=== PATIENT | male | born 1990 | race African-American/Black ===

== ENCOUNTER 2019-05-08 15:09 | Emergency (ER) | payer MEDICARE, OTHER ==
[~2019-05-08] VITALS: Ht 180.3 cm; Wt 74.8 kg
--- NOTE | 2019-05-08 15:30 | NUR ---
PATIENT WAS MSE BY DR LOPES IN ROOM 02A. PATRICIA A & Alber X4.
--- NOTE | 2019-05-08 15:48 | NUR ---
Patient discharged to home in stable conditon. Written and verbal after care instructions given. Patient verbalizes understanding of instructions.
[2019-05-08 15:51] VITALS: BP 111/75
== END 2019-05-08 15:51 | disposition home or self-care (01) ==
LOC: ER 15:12
DX: H10.89 Other conjunctivitis (principal); B96.89 Other specified bacterial agents as the cause of diseases classified elsewhere
CPT/HCPCS: A4663

== ENCOUNTER 2020-01-08 11:25 | Emergency (ER) | payer MEDICARE, OTHER ==
[~2020-01-08] VITALS: Ht 175.3 cm; Wt 81.6 kg
--- NOTE | 2020-01-08 11:42 | NUR ---
PT IS IN ROOM #2B UNDER DIRECT SUPERVISION OF AMBIKA WHITMAN. DR SU EVALUATED THE PT.
[2020-01-08 11:56] LABS: BASOPHILS # (AUTO) 0.1 K/uL (0.0-8.0); BASOPHILS % (AUTO) 0.6 % (0.0-2.0); EOSINOPHILS # (AUTO) 0.3 K/uL (0.0-0.7); HEMOGLOBIN 16.1 g/dL (12.5-16.3); LYMPHOCYTES # (AUTO) 2.2 K/uL (20.0-40.0); LYMPHOCYTES % (AUTO) 24.5 % (20.5-51.5); MEAN CORPUSCULAR HEMOGLOBIN 29.6 uug (23.8-33.4); MEAN CORPUSCULAR HGB CONC 35 g/dL (32.5-36.3); MEAN CORPUSCULAR VOLUME 84.4 fL (73.0-96.2); MONOCYTES # (AUTO) 0.8 K/uL (2.0-10.0); MONOCYTES % (AUTO) 8.7 % (0.0-11.0); NEUTROPHILS # (AUTO) 5.7 K/uL (1.8-8.9); NEUTROPHILS % (AUTO) 63.2 % (38.5-71.5); PLATELET COUNT (AUTO) 273 K/uL (152-348); RED BLOOD CELL COUNT(AUTO) 5.45 MIL/uL (4.06-5.63); WHITE BLOOD COUNT (AUTO) 9.1 K/uL (3.6-10.2)
[2020-01-08 12:03] LABS: CARBON DIOXIDE 28 mmol/L (21-32); CHLORIDE 101 mmol/L (98-107); CREATININE 0.9 mg/dL (0.6-1.3); GLUCOSE 97 mg/dL (74-106); POTASSIUM 3.5 mmol/L (3.5-5.1); UREA NITROGEN, BLOOD 6 mg/dL (7-18)
[2020-01-08 12:09] LABS: ALANINE AMINOTRANSFERASE 24 U/L (16-63); ALKALINE PHOSPHATASE 114 U/L (50-136); ASPARTATE AMINOTRANSFERASE 19 U/L (15-37); BILIRUBIN,DIRECT 0.1 mg/dL (0.0-0.2); BILIRUBIN,TOTAL 0.4 mg/dL (0.2-1.0); TOTAL PROTEIN, SERUM 8.5 g/dL (6.4-8.2)
[2020-01-08 12:10] LABS: ETHANOL < 3 MG/DL (0-0)
[2020-01-08 12:12] LABS: *AMPHETAMINE, URINE NEGATIVE (NEGATIVE); *BARBITURATE, URINE NEGATIVE (NEGATIVE); *CANNABINOID, URINE POSITIVE (NEGATIVE); *COCCAINE, URINE NEGATIVE (NEGATIVE); *OPIATE, URINE NEGATIVE (NEGATIVE); *PHENCYCLIDINE SCREEN,URINE NEGATIVE (NEGATIVE)
[2020-01-08] MEDS ORDERED: OLANZAPINE 5 MG TABLET PO ONE (13:00)
[2020-01-08] MEDS ORDERED: OLANZAPINE 5 MG TABLET ONE (13:29)
--- NOTE | 2020-01-08 14:02 | NUR ---
CRISIS IMPORTER OR EXPORTER INGA WAS CALLED . CANDACE IS 30 MINUTES. PT IS RESTING IN BED COMFORTABLY. NO S/S OF DISTRESS AT THIS TIME. CONTINUE TO MONITOR THE PT.
--- NOTE | 2020-01-08 14:30 | NUR ---
Lyric faria in EDM - 01/08/20 at 1535 by JOE CRISIS SLUNK SKIN CURER IGNA TALKED TO THE PT. PT IS GOING TO BE TRANSFERED TO [facility] [address] [facility]IA BLS AMBULANCE.
--- NOTE | 2020-01-08 14:48 | NUR ---
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 SW discussed patient's needs with Dr. Watters and Edgar. SW then met with the patient, who was in his assigned ED bed. Patient is a 29 year old -[place] male. Patient was awake, alert, oriented x 4, receptive to meeting with this SW. Patient reports being homeless for the last 4 years. Patient states that he does not have any family or friends to contact for emergencies. Patient provided this SW with his cell phone # [phone]. Patient reports diagnosis of Schizophrenia, and being on Risperdal and Xanax in the past, however states he has not been taking his medication. Patient did not provide a reason why he hasn't been taking his medications. Patient denied use of alcohol or drugs. Patient reports hx of auditory and visual hallucinations, but told this SW that he was not having any hallucinations today. However, per patient's medical records and per physician's report, patient told the physician that patient was having auditory hallucinations of voices telling him to run into traffic, but that patient reported not feeling suicidal or homicidal. Patient acknowledged that he feels the need for psychiatric treatment. Voluntary admission to inpatient psychiatric unit discussed, and patient expressed wanting to go to [facility], where he has received inpatient psychiatric care in the past. Patient's affect was flat, behavior was appropriate. Patient was cooperative and engaged in dialogue with this SW. Patient's appearance was fair, and hygiene was poor. Patient presented with a foul body odor. Speech was clear. Thought content was appropriate. Homeless community resources were discussed with the patient, and patient expressed agreement with receiving these resources. SW provided patient with the homeless resource packet, which includes the following resources: a list of year round shelters [facility] [address], ; [facility] [address] [facility], ; and [facility] [address] [facility], [phone], along with resources for places to go for food, showers, substance abuse treatment, mental health services, community medical clinics, and pharmacies. These include the following: the [facility] homeless directory which provides a list of places that individuals can go to throughout the week for hot meals, sack lunches, food pantries, and showers; a list of mental health clinics: [facility] [address] [place] [address], ; [facility] [address] [place] [address], ; [facility] [address] [place] [address], ; a list of medical clinics: [facility] [address] [facility] [address], [place]. [place], ; [facility] [address] [facility] [place] [address]; [facility] [address] [place] [address], ; and a list of substance abuse programs: [facility] Substance Abuse Self-helpline ; [facility] ; [facility] ; [facility] ; [facility] ; [facility] [phone]; [facility] [phone]; locations of pharmacies. ORLANDO completed the Homeless Patient Wavier Form, and patient signed the waiver form. ORLANDO filed the signed form in patient's ED chart. ORLANDO to submit referral to [facility] for inpatient psychiatric treatment. ORLANDO informed Dr. Watters and AMBIKA Hernández that this SW has provided patient with the homeless resource packet, and that this SW will be referring patient to [facility] for psychiatric treatment. Dr. Watters and ABMIKA Hernández were in agreement with the plan. ORLANDO to provide updates on the referral process to AMBIKA Hernández.
--- NOTE | 2020-01-08 15:05 | NUR ---
2:40pm: This SW faxed patient's face sheet, and medical records to Billy at [facility] (tel # [phone]; fax # [phone]).
--- NOTE | 2020-01-08 15:35 | NUR ---
AGUEDA XIONG EVALUATED THE PT. PT IS GOING TO BE TRANSFERED TO [facility] [address]. CONTINUE TO MONITOR THE PT.
[2020-01-08] MEDS ORDERED: IV NORMAL SALINE 1000 ML BAG IV ONE (15:45)
--- NOTE | 2020-01-08 16:12 | NUR ---
4:08pm: ORLANDO received a call from Susana at [facility] ([facility]) intake department [phone]. Susana asked this SW for a physician's note stating patient is medically cleared for psychiatric admission. Susana stated that patient will is pending admission to [facility] ([address] [place] [address], ), awaiting medical clearance note from physician. ORLANDO informed Susana and ORLANDO will fax the note over to Susana as soon as possible. ORLANDO spoke with AMBIKA Hernández and Dr. Watters regarding physician's note for medical clearance. Dr. Watters to complete this note. SW to fax the note to [facility] when completed.
--- NOTE | 2020-01-08 16:31 | NUR ---
4:25pm: ORLANDO faxed physician's note, indicating "patient is medically cleared for psychiatric admission" to Susana at [facility], fax # [phone].
--- NOTE | 2020-01-08 16:42 | NUR ---
4:40pm: ORLANDO received a call from Susana at [facility] intake, who stated that [facility] [address] [place] [address], . Susana stated that patient's admitting physician will be Dr. Rosales, and that patient would be going to Unit [address], Room [facility]. Susana asked for the ED nurse to call [facility] and provide a [id number] report around 5pm, x 108. AMBIKA Hernández informed of above. also asked AMBIKA Hernández to make ambulance arrangements for patient's transfer to [facility], and Edgar expressed agreement for all above.
--- NOTE | 2020-01-08 17:52 | NUR ---
REPORT WAS GIVEN TO AMBIKA BUTLER FROM [facility] [address]. PT WAS TRANSFERED TO [facility] VIA BLS AMBULANCE. PT WENT TO UNIT #1 , ROOM 107D.
== END 2020-01-08 17:56 ==
LOC: ER 11:25
DX: F20.9 Schizophrenia, unspecified (principal); Z91.14 Patient's other noncompliance with medication regimen; Z20.828 Contact with and (suspected) exposure to other viral communicable diseases; Z59.0 Homelessness
CPT/HCPCS: 36415; 80307; 85025; A4663; G0480; J7030

== ENCOUNTER 2020-01-22 20:14 | Emergency (ER) | payer MEDICARE, OTHER ==
[~2020-01-22] VITALS: Ht 177.8 cm; Wt 78.0 kg
[2020-01-22] MEDS ORDERED: RISP2TAB5 PO (20:24)
--- NOTE | 2020-01-22 20:50 | NUR ---
Medically cleared by DR Norman.
[2020-01-22 20:51] LABS: BASOPHILS # (AUTO) 0.1 K/uL (0.0-8.0); BASOPHILS % (AUTO) 1.1 % (0.0-2.0); EOSINOPHILS # (AUTO) 0.4 K/uL (0.0-0.7); EOSINOPHILS % (AUTO) 6.4 % (0.0-7.0); HEMOGLOBIN 13.7 g/dL (12.5-16.3); LYMPHOCYTES # (AUTO) 2.3 K/uL (20.0-40.0); LYMPHOCYTES % (AUTO) 32.8 % (20.5-51.5); MEAN CORPUSCULAR HEMOGLOBIN 29.4 uug (23.8-33.4); MEAN CORPUSCULAR HGB CONC 34 g/dL (32.5-36.3); MEAN CORPUSCULAR VOLUME 85.5 fL (73.0-96.2); MONOCYTES # (AUTO) 0.6 K/uL (2.0-10.0); MONOCYTES % (AUTO) 8.4 % (0.0-11.0); NEUTROPHILS # (AUTO) 3.5 K/uL (1.8-8.9); NEUTROPHILS % (AUTO) 51.3 % (38.5-71.5); PLATELET COUNT (AUTO) 250 K/uL (152-348); RED BLOOD CELL COUNT(AUTO) 4.68 MIL/uL (4.06-5.63); WHITE BLOOD COUNT (AUTO) 6.9 K/uL (3.6-10.2)
[2020-01-22] MEDS ORDERED: risperiDONE 2 MG TABLET PO STA (20:54)
[2020-01-22 20:58] LABS: CARBON DIOXIDE 26 mmol/L (21-32); CHLORIDE 105 mmol/L (98-107); CREATININE 0.8 mg/dL (0.6-1.3); GLUCOSE 93 mg/dL (74-106); POTASSIUM 3.7 mmol/L (3.5-5.1); UREA NITROGEN, BLOOD 12 mg/dL (7-18)
[2020-01-22 21:04] LABS: ACETAMINOPHEN < 2.0 ug/mL (10-30); ALANINE AMINOTRANSFERASE 23 U/L (16-63); ALKALINE PHOSPHATASE 94 U/L (50-136); ASPARTATE AMINOTRANSFERASE 18 U/L (15-37); BILIRUBIN,DIRECT 0.1 mg/dL (0.0-0.2); BILIRUBIN,TOTAL 0.3 mg/dL (0.2-1.0); TOTAL PROTEIN, SERUM 7.2 g/dL (6.4-8.2)
[2020-01-22 21:08] LABS: ETHANOL < 3 MG/DL (0-0)
[2020-01-22 21:09] LABS: *AMPHETAMINE, URINE NEGATIVE (NEGATIVE); *BARBITURATE, URINE NEGATIVE (NEGATIVE); *CANNABINOID, URINE POSITIVE (NEGATIVE); *COCCAINE, URINE NEGATIVE (NEGATIVE); *OPIATE, URINE NEGATIVE (NEGATIVE); *PHENCYCLIDINE SCREEN,URINE NEGATIVE (NEGATIVE)
[2020-01-22] MEDS ORDERED: risperiDONE 1 MG TABLET ONE (21:12)
--- NOTE | 2020-01-22 21:30 | NUR ---
Provided dinner for patient.
--- NOTE | 2020-01-22 21:30 | NUR ---
Radha from [employer] called Jannethal of [facility] intake who is requesting labs and facesheet to be fax to .
--- NOTE | 2020-01-22 22:18 | NUR ---
MALORIE from [facility] intake called back. Unable to accept patient due to max capacity. Will call Michael [phone] as suggested by MALORIE.
--- NOTE | 2020-01-22 22:25 | NUR ---
Spoke to Gary restrepo from [facility]. Requesting to fax labs and facesheet to .
[2020-01-23 00:09] LABS: *BILIRUBIN,URIN NEGATIVE (NEGATIVE); *BLOOD, URINE NEGATIVE (NEGATIVE); *CLARITY,URINE CLEAR (CLEAR); *COLOR,URINE YELLOW (YELLOW); *KETONES,URINE NEGATIVE (NEGATIVE); *UROBILINOGEN,URINE 0.2 E.U./dl (NORMAL); LEUKOCYTE ESTERASE ,URINE NEGATIVE (NEGATIVE); NITRITE, URINE NEGATIVE (NEGATIVE); UGLUCOSE NEGATIVE (NEGATIVE)
--- NOTE | 2020-01-23 02:12 | NUR ---
CJ intake from [facility] called back with transfer infor. Patient will be going to [facility] Room 310B, accepting MD is Dr Martin. Call for report is .
--- NOTE | 2020-01-23 02:24 | NUR ---
Called [facility]. No units available at this time to transfer patient.
--- NOTE | 2020-01-23 02:25 | NUR ---
Called [facility] for transfer, unable to transfer without insurance authorization.
--- NOTE | 2020-01-23 02:27 | NUR ---
Called [facility] ambulance. No units available at this time.
--- NOTE | 2020-01-23 02:36 | NUR ---
Called [facility] [phone]. ETA is 0585.
--- NOTE | 2020-01-23 02:44 | NUR ---
Gave SBAR report to Franki santiago from [facility] .
--- NOTE | 2020-01-23 04:58 | NUR ---
Gave SBAR report to [facility] unit 8.
== END 2020-01-23 05:05 ==
LOC: ER 20:17
DX: F23 Brief psychotic disorder (principal); R45.851 Suicidal ideations; Z91.14 Patient's other noncompliance with medication regimen; F12.10 Cannabis abuse, uncomplicated; Z79.899 Other long term (current) drug therapy; Z20.828 Contact with and (suspected) exposure to other viral communicable diseases
CPT/HCPCS: 36415; 80048; 80076; 80307 ×2; 80329; 81001; 85025; 87426; 99285; G0480; A4663

== ENCOUNTER 2023-01-04 08:36 | Emergency (ER) | payer MEDICARE, OTHER ==
[~2023-01-04] VITALS: Ht 175.3 cm; Wt 106.6 kg
[~2023-01-04 08:36] MED LIST: ARIP5TAB10 PO; DIVA250T4 PO
[2023-01-04] MEDS ORDERED: OLANZAPINE 10 MG VIAL IM ONE ×2 (09:15→09:40)
[2023-01-04 09:44] LABS: BASOPHILS % (AUTO) 0.6 % (0.0-2.0); EOSINOPHILS # (AUTO) 0.5 K/uL (0.0-0.7); EOSINOPHILS % (AUTO) 7.6 % (0.0-7.0); HEMATOCRIT 41.9 % (36.7-47.1); HEMOGLOBIN 14.1 g/dL (12.5-16.3); LYMPHOCYTES # (AUTO) 1.8 K/uL (0.8-4.8); LYMPHOCYTES % (AUTO) 28.8 % (20.5-51.5); MEAN CORPUSCULAR HEMOGLOBIN 27.9 uug (23.8-33.4); MEAN CORPUSCULAR HGB CONC 34 g/dL (32.5-36.3); MEAN CORPUSCULAR VOLUME 82.6 fL (73.0-96.2); MONOCYTES # (AUTO) 0.4 K/uL (0.1-1.30); MONOCYTES % (AUTO) 5.9 % (0.0-11.0); NEUTROPHILS # (AUTO) 3.6 K/uL (1.8-8.9); NEUTROPHILS % (AUTO) 57.1 % (38.5-71.5); PLATELET COUNT (AUTO) 296 K/uL (152-348); RED BLOOD CELL COUNT(AUTO) 5.07 MIL/uL (4.06-5.63); WHITE BLOOD COUNT (AUTO) 6.3 K/uL (3.6-10.2)
[2023-01-04 09:45] LABS: *BLOOD, URINE NEGATIVE (NEGATIVE); *CLARITY,URINE CLEAR (CLEAR); *COLOR,URINE YELLOW (YELLOW); *KETONES,URINE 2+ (NEGATIVE); *PROTEIN,URINE 1+ (NEGATIVE); *UROBILINOGEN,URINE 0.2 E.U./dl (NORMAL); LEUKOCYTE ESTERASE ,URINE NEGATIVE (NEGATIVE); NITRITE, URINE NEGATIVE (NEGATIVE); UGLUCOSE NEGATIVE (NEGATIVE)
[2023-01-04 09:49] LABS: DIFFERENTIAL COMMENT 1
[2023-01-04 09:50] LABS: *BILIRUBIN,URIN 1+ (NEGATIVE)
[2023-01-04 10:03] LABS: ETHANOL < 3 MG/DL (0-10)
[2023-01-04 10:03] LABS: *AMPHETAMINE, URINE POSITIVE (NEGATIVE); *BARBITURATE, URINE NEGATIVE (NEGATIVE); *BENZODIAZEPINE, URINE NEGATIVE (NEGATIVE); *CANNABINOID, URINE POSITIVE (NEGATIVE); *COCCAINE, URINE NEGATIVE (NEGATIVE); *OPIATE, URINE NEGATIVE (NEGATIVE); *PHENCYCLIDINE SCREEN,URINE NEGATIVE (NEGATIVE)
[2023-01-04 10:16] LABS: ALANINE AMINOTRANSFERASE 39 U/L (16-63); ALKALINE PHOSPHATASE 118 U/L (50-136); ASPARTATE AMINOTRANSFERASE 34 U/L (15-37); BILIRUBIN,DIRECT 0.2 mg/dL (0.0-0.2); BILIRUBIN,TOTAL 0.4 mg/dL (0.2-1.0); CALCIUM 9.9 mg/dL (8.5-10.1); CARBON DIOXIDE 30 mmol/L (21-32); CHLORIDE 101 mmol/L (98-107); GLUCOSE 113 mg/dL (74-106); SODIUM SERUM 139 mmol/L (136-145); TOTAL PROTEIN, SERUM 8.4 g/dL (6.4-8.2); UREA NITROGEN, BLOOD 11 mg/dL (7-18)
[2023-01-04 10:20] LABS: ACETAMINOPHEN < 2.0 ug/mL (10-30)
[2023-01-04 10:24] LABS: FENTANYL, URINE NEGATIVE (NEGATIVE)
[2023-01-04 11:08] LABS: BACTERIA,URINE FEW /HPF (NONE SEEN); MUCUS,URINE FEW /LPF (0-FEW); RBC,URINE 0-3 /HPF (0-3); SQUAMOUS EPITHELIAL CELL,UR FEW /HPF (NONE SEEN); WBC,URINE 0-3 /HPF (0-3)
[2023-01-04 11:26] VITALS: O2SAT 96
== END 2023-01-04 14:35 ==
LOC: ER 08:37
DX: R44.0 Auditory hallucinations (principal); F17.210 Nicotine dependence, cigarettes, uncomplicated; Z79.899 Other long term (current) drug therapy; Z20.822 Contact with and (suspected) exposure to COVID-19
CPT/HCPCS: 36415; 85025; A4663; G0480; J2358

== ENCOUNTER 2023-01-16 15:15 | Emergency (ER) | payer MEDICARE, OTHER | END 2023-01-16 15:30 | disposition left against medical advice (07) | LOC: ER 15:18 | DX: Z53.21 Procedure and treatment not carried out due to patient leaving prior to being seen by health care provider (principal) ==